=== PATIENT | female | born 1985 | race Caucasian/White ===

== ENCOUNTER 2017-02-14 19:58 | Emergency (ER) | payer OTHER ==
[~2017-02-14] VITALS: Ht 162.6 cm; Wt 59.1 kg
[2017-02-14 20:07] VITALS: BP 120/85; PULSE 82; RESP 15; O2SAT 98
[2017-02-14 20:47] LABS: BASOPHILS % (AUTO) 0.4 % (0-3); EOSINOPHILS % (AUTO) 1.4 % (0-5); MONOCYTES % (AUTO) 7.7 % (4-12); Mean Corpuscular Hemoglobin 30.4 pg (27.0-35.0); Mean Corpuscular Volume 91.3 fL (81-100); NEUTROPHILS % (AUTO) 59.8 % (40-74); Platelet Count 255 bil/L (150-400)
[2017-02-14 20:54] LABS: APPEARANCE,URINE CLEAR (CLEAR,HAZY); COLOR,URINE YELLOW (YELLOW); OCCULT BLOOD,URINE LARGE (NEGATIVE); UROBILINOGEN,URINE NORMAL (NORMAL)
--- NOTE | 2017-02-14 22:28 | ED.REPORT ---
HPI-Abd Pain F Under 40 Date of Service Feb 14, 2017 ED Provider: Dr. Escobedo Pt is a 31 year old female presenting to the ED complaining of lower abdominal/ pelvic pain and cramping onset yesterday. Associated symptoms include vaginal bleeding, diarrhea. Denies urinary symptoms. Pt is on Provera and Clomiphene, and her last period was in early December. She reports that she had a positive urine test at home a few days ago. Nursing Notes Stated Complaint: ABD/PELVIC PAIN Chief Complaint: Female Abdominal Pain Nursing Notes Reviewed: Yes Allergies: Coded Allergies: penicillin (Verified Allergy, Unknown, 02/14/17) Scheduled PRN Naproxen (Naprosyn) 500 Mg Tablet 500 MG PO BID PRN PRN For Pain General Time Seen by MD: 22:27 Chief Complaint Abdominal pain Hx Obtained From: Patient Arrived By: Walk-in Sudden in Onset?: No Onset Occurred: Yesterday Context of Onset: Fertility treatments Symptom Duration: Since onset Progression since Onset: Constant Location: : Abdomen lower Quality: Painful Severity: Current: Mild Severity: Maximum: Moderate Recent Healthcare: No recent doctor visit, No recent hospitalization Similar Sx Previous: No Past Medical History Past Medical History Pt on fertility treatments Past Surgical History denies Smoking History Unknown if Ever Smoker Ambulatory Status Independent Review of Systems GI: Reports: Abdominal pain, Diarrhea Female: Reports: Pelvic pain, Vaginal bleeding - abnl, Denies: Dysuria, Urinary frequency, Urinary urgency Complete sys rev & neg: except as marked. Physical Exam Initial Vital Signs Vital Signs (First) Date Time Temp Pulse Resp B/P Pulse Ox O2 Delivery O2 Flow Rate FiO2 02/14/17 20:07 36.1 82 15 120/85 98 Room Air Initial VS: Reviewed Head / Eyes: Atraumatic, Normocephalic, PERRL ENT: Mucous membranes moist, Conjunctiva normal, No scleral icterus Extremities: Vascular intact, Neuro intact, No swelling, No tenderness Skin: Warm, Dry, No cyanosis Neurologic: Alert, Oriented, Nonfocal Psychiatric: Mood/affect normal, Behavior normal, Normal thought content General/Constitutional: Awake, Alert, No acute distress, Well appearing, Well developed, Well hydrated Respiratory / Chest: Atraumatic, Breath sounds NL, Breath sounds = bilat, No respiratory distress, No chest tenderness Cardiovascular: Heart rate NL, Regular rhythm, Heart sounds NL, No gallop, No murmurs, No rubs Abdomen: Atraumatic, Soft, Non-tender, No guarding, No rebound Interpretation & Diagnostics Interpretation & Diagnostics: negative Lab Results Interpretation Result Diagram: 02/14/17203902/14/172039 Test 02/14/17 20:30 02/14/17 20:40 Urine Color Yellow (YELLOW) Urine Appearance Clear (CLEAR,HAZY) Urine pH 6.0 (5.0-8.0) Urine Specific [place] <1.005 (1.003-1.035) Urine Protein Negativemg/dL (NEG,TRACE) Urine Glucose (UA) Negativemg/dL (NEGATIVE) Urine Ketones Negativemg/dL (NEGATIVE) Urine Occult Blood Large (NEGATIVE) Urine Nitrite Negative (NEGATIVE) Urine Bilirubin Negative (NEGATIVE) Urine Urobilinogen Normalmg/dL (NORMAL) Urine Leukocyte Esterase Small (NEGATIVE) Urine RBC 0-2/hpf (0-2) Urine WBC 6-10/hpf (0-5) Urine Epithelial Cells Many/hpf (NONE-MOD) Urine Crystals None seen (NONE SEEN) Urine Bacteria Moderate/hpf (NONE-FEW) Urine Hyaline Casts None/lpf (NONE) Urine Granular Casts None seen (NONE SEEN) Urine Waxy Casts None seen (NONE SEEN) Urine Red Blood Cell Casts None seen (NONE SEEN) Urine White Blood Cell Casts None seen (NONE SEEN) Urine Mucus None seen (None Seen) Urine Trichomonas None seen (NONE SEEN) Urine Yeast None (NONE SEEN) Urinalysis Comment None Urine Culture Reflexed Indicated White Blood Count 9.4th/mm3 (3.8-10.1) Red Blood Count 4.38mil/mm3 (3.90-5.20) Hemoglobin 13.3g/dL (12.0-15.6) Hematocrit 40.0% (35.0-46.0) Mean Corpuscular Volume 91.3fL (81-100) Mean Corpuscular Hemoglobin 30.4pg (27.0-35.0) Mean Corpuscular Hemoglobin Concent 33.3% (32.0-37.0) Red Cell Distribution Width 12.0% (12.3-15.4) Platelet Count 255bil/L (150-400) Neutrophils (%) (Auto) 59.8% (40-74) Lymphocytes (%) (Auto) 30.5% (14-46) Monocytes (%) (Auto) 7.7% (4-12) Eosinophils (%) (Auto) 1.4% (0-5) Basophils (%) (Auto) 0.4% (0-3) Sodium Level 136mEq/L (134-144) Potassium Level 3.8mEq/L (3.5-5.2) Chloride Level 98mEq/L (97-108) Carbon Dioxide Level 24mmol/L (18-29) Blood Urea Nitrogen 13mg/dL (6-20) Creatinine 0.57mg/dL (0.57-1.00) Estimat Glomerular Filtration Rate 177mL/min (>59) Glucose Level 89mg/dL (60-99) Calcium Level 9.5mg/dL (8.5-10.1) Total Bilirubin 0.3mg/dL (0.0-1.2) Aspartate Amino Transf (AST/SGOT) 35U/L (0-50) Alanine Aminotransferase (ALT/SGPT) 36U/L (0-32) Alkaline Phosphatase 49U/L (25-150) Total Protein 7.1g/dL (6.4-8.4) Albumin 4.6g/dL (3.4-5.0) HCG Beta Subunit 1.59mIU/mL Hold Flores Top Tube Received (Received) Re-Eval/Medical Decision Med Decision/Clinical Course Med Decision/Clinical Course: 31-year-old in the midst of fertility therapy presents with some crampy vaginal bleeding. She had a borderline positive home test several days ago but a negative test here, and a negative hCG by serum. His likely that she has had an early miscarriage by story. Her exam is benign. No indication for ultrasound at this point, given zero hCG and zero likelihood of finding anything on ultrasound. She has plan for follow-up tomorrow with her [employer] and will follow up as planned. Discharged in stable condition. Re-Evaluation/Progress : Time of Eval: 23:51 Patient Status: Condition improved Re-Evaluation/Progress Note: Discussed lab results and plan for discharge. Pt understands and agrees with plan. Counseled Regarding: Diagnosis, Lab results, Need for follow-up, When/why to return to ED Discharge & Departure Primary Impression: Miscarriage Disposition: Home Discharge Condition All VS Reviewed: Yes Condition: Improved Patient Instructions: Spontaneous Miscarriage (ED) Additional Instructions: Return for heavy bleeding or any other new symptoms of concern. Naprosyn twice daily for cramps and bleeding. Call your [employer] tomorrow for follow-up in the next day or two. Referrals: [facility] (PCP) [facility] Scribe Attestation Portions of this note were transcribed by Maxine Segovia. I, Dr. Escobedo personally performed the history, physical exam and medical decision-making; I reviewed and confirmed the accuracy of the information in the transcribed note. Signed by: Reji Galvez, 02/15/2017 at 0047. copies to: [facility] Floyd Escobedo MD Feb 14, 2017 22:28 MAXINE SEGOVIA Feb 14, 2017 22:35
[2017-02-14 22:47] VITALS: BP 108/76; PULSE 72; O2SAT 99
[2017-02-14] MEDS ORDERED: NAPR500T PO (23:54)
[2017-02-15 00:04] VITALS: BP 110/72; PULSE 70; RESP 16; O2SAT 100
== END 2017-02-15 00:05 | disposition home or self-care (01) ==
LOC: SED 19:58
DX: O03.9 Complete or unspecified spontaneous abortion without complication (principal); Z88.0 Allergy status to penicillin